=== PATIENT | female | born 1960 | race Caucasian/White ===

== ENCOUNTER 2018-06-25 08:55 | Day surgery (SDC) | payer MEDICAID ==
[~2018-06-25] VITALS: Ht 147.3 cm; Wt 74.4 kg
[2018-06-25] MEDS ORDERED: CYCLOPENTOLATE HCL 1% OPHTH DROPS 2ML RIGHTEYE NR (09:30)
[2018-06-25] MEDS ORDERED: TROPICAMIDE 1% OPHTH DROPS 15ML RIGHTEYE NR (09:30)
[2018-06-25] MEDS ORDERED: PHENYLEPHRINE HCL 10% OPHTH DROPS 5ML RIGHTEYE NR (09:30)
[2018-06-25] MEDS ORDERED: LACTATED RINGERS 1,000 ML IV SCH (10:00)
[2018-06-25] MEDS ORDERED: BALANCED SALT IRRIG SOLN COMB2 500ML OP NR (10:00)
[2018-06-25] MEDS ORDERED: BALANCED SALT IRRIG SOLN COMB1 500ML OP NR (10:00)
[2018-06-25] MEDS ORDERED: ERGO400C PO (10:36)
[2018-06-25] MEDS ORDERED: HYALURONATE SODIUM 14 MG/ML 0.85ML SYRINGE IO ONE (10:56)
[2018-06-25] MEDS ORDERED: LIDOCAINE HCL/PF 1% 10 MG/ML 5ML VIAL ONE (11:26)
[2018-06-25] MEDS ORDERED: SUCCINYLCHOLINE CHLORIDE 200MG/10ML VIAL IV ONE (11:26)
[2018-06-25] MEDS ORDERED: PROPOFOL 200MG/20ML VIAL IV ONE (11:26)
[2018-06-25] MEDS ORDERED: GLYCOPYRROLATE 0.2 MG/ML 2ML VIAL ONE (11:26)
[2018-06-25] MEDS ORDERED: MIDAZOLAM HCL 2 MG/2 ML VIAL ONE (11:26)
[2018-06-25] MEDS ORDERED: SODIUM CHLORIDE 0.9% 1,000 ML IV ONE (11:44)
[2018-06-25] MEDS ORDERED: ONDANSETRON HCL 4MG/2ML INJ IV PRN (11:45)
[2018-06-25] MEDS ORDERED: BALANCED SALT IRRIG SOLN 15ML ONE (15:47)
[2018-06-25] MEDS ORDERED: TETRACAINE 0.5% OPHTH DROPS 4ML ONE (15:47)
[2018-06-25] MEDS ORDERED: LIDOCAINE HCL/PF 2% 20 MG/ML 10ML VIAL ONE (15:47)
[2018-06-25] MEDS ORDERED: TROPICAMIDE 1% OPHTH DROPS 15ML ONE (15:47)
[2018-06-25] MEDS ORDERED: PHENYLEPHRINE HCL 10% OPHTH DROPS 5ML ONE (15:47)
== END 2018-06-25 13:00 | disposition home or self-care (01) ==
LOC: OR 08:55
PROVIDERS: ATTEND Ophthalmology
DX: H25.011 Cortical age-related cataract, right eye (principal); H21.541 Posterior synechiae (iris), right eye; Z79.899 Other long term (current) drug therapy
CPT/HCPCS: 66984; J0330; J2250; J3490; J7120; J2704